=== PATIENT | male | born 1985 | race Caucasian/White ===

== ENCOUNTER 2024-08-05 14:38 | Emergency (ER) | payer OTHER, SELFPAY ==
[2024-08-05 14:49] VITALS: BP 122/81; PULSE 92; RESP 16; TEMP 36.6; O2SAT 100
--- NOTE | 2024-08-05 14:52 | ED.GENADULT ---
HPI - General Adult General Chief complaint: Ear Stated complaint: EARS CLOGGED Time Seen by Provider: 08/05/24 14:40 Source: patient Mode of arrival: ambulatory Limitations: no limitations History of Present Illness HPI narrative: Patient is a pleasant 38-year-old male presenting with complaint ears feeling clogged intermittently x2 months. Reports muffled hearing bilaterally. reports drainage from right ear yesterday. States he has been cleaning them a lot with Q-tips. Does report recent travel by airplane. Denies any concurrent URI symptoms. Denies known trauma / injury. No additional complaints. Related Data Home Medications ?Medication ?Instructions ?Recorded ?Confirmed ?Last Taken ?Type cetirizine 10 mg tablet (24Hour 10 mg PO DAILY 08/05/24 08/05/24 Unknown History Allergy) Allergies Allergy/AdvReac Type Severity Reaction Status Date / Time No Known Allergies Allergy Unverified 08/05/24 14:46 Review of Systems Review of Systems: CONSTITUTIONAL: Denies body aches, fever, chills, or sweats. EYES: Denies visual changes, redness, or discharge. ENT: Denies rhinorrhea, congestion, sore throat CARDIOVASCULAR: Denies chest pain, palpitations, or edema. RESPIRATORY: Denies cough or dyspnea. GASTROINTESTINAL: Denies abdominal pain, nausea, vomiting, or diarrhea. GENITOURINARY: Denies dysuria or hematuria. SKIN: Denies rash, itching, or wounds. MUSCULOSKELETAL: Denies back pain, joint pain, or myalgia. NEUROLOGIC: Denies headache, numbness, tingling, or weakness. PSYCH: Denies depression or anxiety. All systems reviewed & are unremarkable except as noted in HPI and below [facility] Past Medical History Medical History Lip[place] Had 3 removed 1- left chest 2 abdominal ADD (attention deficit disorder) Social History Social History Smoking status: Never smoker Tobacco type: e-cigarettes/vaping Second hand tobacco smoke exposure: No Alcohol intake: current Alcohol use details: 3-4 per week Substance use: current Substance use type: marijuana Other substance usage details: very rarely Current Housing: Decline to Answer Concerned About Future Housing: Decline to Answer Difficulty Paying Gas/Electric Bills: Decline to Answer Difficulty Paying for Meds: Decline to Answer Currently Unemployed: Decline to Answer Education: Decline to Answer Difficulty w/ Childcare or Family Care: Decline to Answer Living arrangements: with family Occupation/Education: occupation Agree to blood products: Yes Exam Narrative: GENERAL: Well-appearing, well-nourished, and in no acute distress. HEAD: Normocephalic, atraumatic. EYES: EOMI. No redness or drainage. Conjunctivae normal. ENT: Mucous membranes pink and moist. Nares clear. No rhinorrhea. Throat normal. Uvula midline. No mastoid tenderness. no lymphadenopathy NECK: Normal AROM. Supple. No lymphadenopathy. CHEST: No respiratory distress. Clear to auscultation. HEART: Regular rate MUSCULOSKELETAL: No bony tenderness. EXTREMITIES: Normal range of motion. SKIN: Warm, dry, no rash. Capillary refill normal. Normal skin turgor. NEURO: No focal deficits. Alert and oriented x3. Gait steady. PSYCH: Normal affect. No signs of depression or anxiety. HENMT: Ears: hearing grossly normal bilaterally, external ears normal, TM normal on the left, EAC's normal and TM abnormal perforated with purulent discharge on the right Course Course Emergency Course: Please be advised this is a medical document. It is intended for [id number] communication. It is written in medical language and may contain unfamiliar abbreviations or verbiage. Medical documents are intended to carry relevant information, facts as evident, and the clinical opinion of the practitioner at the time of the encounter. This dictation may have been done utilizing a voice recognition system. Attempts have been made to correct errors. However, there may be uncorrected grammatical, spelling, and recognition errors present. Level of Care: Express Care Visit Vital Signs Vital signs: Vital Signs Temperature 98 F 08/05/24 14:49 Pulse Rate 92 08/05/24 14:49 Respiratory Rate 16 08/05/24 14:49 Blood Pressure 122/81 08/05/24 14:49 Pulse Oximetry 100 08/05/24 14:49 Temperature 98 F 08/05/24 14:49 Pulse Rate 92 08/05/24 14:49 Respiratory Rate 16 08/05/24 14:49 Blood Pressure 122/81 08/05/24 14:49 Pulse Oximetry 100 08/05/24 14:49 Medical Decision Making Vital Signs Vital Signs: Vital Signs Temperature 98 F 08/05/24 14:49 Pulse Rate 92 08/05/24 14:49 Respiratory Rate 16 08/05/24 14:49 Blood Pressure 122/81 08/05/24 14:49 Pulse Oximetry 100 08/05/24 14:49 Temperature 98 F 08/05/24 14:49 Pulse Rate 92 08/05/24 14:49 Respiratory Rate 16 08/05/24 14:49 Blood Pressure 122/81 08/05/24 14:49 Pulse Oximetry 100 08/05/24 14:49 Discharge Plan Discharge Clinical Impression: Otalgia, Perforated right tympanic membrane on examination Patient Disposition: Home Condition: Stable Instructions: Antibiotic Form, Ruptured Eardrum (ED) Additional Instructions: follow-up with ENT within the next 1 week. Go straight to ER should your symptoms become worse or should any new symptoms develop Patient Language: Ukrainian Prescriptions: New amoxicillin 500 mg capsule 500 mg PO Q12H Qty: 10 0RF No Action cetirizine [24Hour Allergy] 10 mg tablet 10 mg PO DAILY triamcinolone acetonide 0.1 % cream 1 applic topical BID PRN (Reason: rash) Qty: 30 1RF dextroamphetamine-amphetamine [Adderall XR] 20 mg capsule,extended release 24hr 20 mg PO DAILY Qty: 30 0RF Follow-up/Referrals: Dante Joshi MD [Non-Staff] - 08/06/24 Jani Gordon DO [Primary Care Provider] - 08/06/24 Time of Disposition: 14:53
== END 2024-08-05 15:14 | disposition home or self-care (01) ==
PROVIDERS: Emergency Provider Registered Nurse; PCP Internal Medicine
DX: H92.03 Otalgia, bilateral (principal); H72.91 Unspecified perforation of tympanic membrane, right ear
CPT/HCPCS: 99213; G0463

== ENCOUNTER 2024-11-21 08:49 | Outpatient (CLI) | payer OTHER, SELFPAY ==
[2024-11-21 09:41] LABS: Hematocrit 40.3 % (42.0-52.0); Hemoglobin 13.3 g/dL (14.0-18.0); Immature Granulocyte Percent A 0.7 % (0-0.5); Lymphocytes Absolute Auto 1.78 K/mm3 (0.9-3.2); Mean Corpuscular HGB Conc 33.0 g/dl (32-36); Mean Corpuscular Hemoglobin 31.4 pg (26-34); Mean Corpuscular Volume 95.3 fl (80-100); Nucleated Red Blood Cells Absolute Auto 0.000 K/mm3 (0.0-0.012); Nucleated Red Blood Cells Perc 0.0 % (0.0-0.2); Platelet Count Result 292 k/mm3 (150-375); Red Blood Count 4.23 M/mm3 (4.6-6.20); White Blood Count 5.4 K/mm3 (4.5-10.0)
[2024-11-21 10:06] LABS: Alanine Aminotransferase 22 U/L (6-50); Albumin Level 4.7 g/dL (3.5-5.1); Alkaline Phosphatase 55 U/L (38-126); Anion Gap 7 mmol/L (4-12); Aspartate Amino Transferase 31 U/L (17-59); Bilirubin,Total 0.4 mg/dL (0.2-1.3); Blood Urea Nitrogen 14 mg/dL (9-20); Calcium 9.1 mg/dL (8.4-10.2); Carbon Dioxide 28 mmol/L (22-30); Chloride 103 mmol/L (98-107); Cholesterol 199 mg/dL (0-200); Estimated Glomerular Filt Rate > 60; Glucose 85 mg/dL (65-110); HDL Direct 57 mg/dL; Potassium 4.2 mmol/L (3.4-5.0); Sodium 138 mmol/L (137-145); Total Protein 7.8 g/dL (6.3-8.2); Triglycerides 175 mg/dL (<150)
[2024-11-21 10:41] LABS: Thyroid Stimulating Hormone 2.520 uIU/mL (0.465-4.680)
[2024-11-22 06:07] LABS: Triiodothyronine (T3), Free 2.8 pg/mL (2.0-4.4)
== END 2024-11-21 08:50 | disposition home or self-care (01) ==
PROVIDERS: PCP Internal Medicine; Visit Provider Internal Medicine
DX: F98.8 Other specified behavioral and emotional disorders with onset usually occurring in childhood and adolescence (principal); R53.83 Other fatigue; Z13.29 Encounter for screening for other suspected endocrine disorder; Z13.0 Encounter for screening for diseases of the blood and blood-forming organs and certain disorders involving the immune mechanism; Z13.228 Encounter for screening for other metabolic disorders
CPT/HCPCS: 36415; 80053; 80061; 82172; 84443; 84481; 85025

== ENCOUNTER 2024-11-24 08:36 | Outpatient (CLI) | payer OTHER, SELFPAY ==
--- OUTSIDE RECORDS SUMMARY | 2024-11-24 08:49 | XMS_ITS | Patient Health Record ---
Author Organization [facility] As [employer] Address [address] [place] [address] Care Team Providers Care Knit Goods Washer Name Role Phone James Avila Unavailable [phone] Reason For Referral No Information Medications Medication SIG (Take, Route, Frequency, Duration) Notes Start Date End Date Status Escitalopram Oxalate 20 MG Tablet Oral 06/30/2018 Active Wellbutrin SR 150 MG Tablet Extended Release 12 Hour Oral 06/30/2018 Act jina Social History Social History Additional Details Category Social Info Options Details Migrated Social History Migrated Social History Alcohol Intake: Occasional 12/29/2019,Tobacco Years: Former smoker 12/29/2019,Smoking Status: 2 12/29/2019 Plan Of Treatment No Information Insurance Providers Payer Name Payer Address Payer Phone Subscriber Number Group Number Insured Name Patient Relationship to Insured Coverage Start Date Coverage End Date Aetna [address] DESIRAE GARCÍA [phone] [id number] KEM CROSS Spouse - patient is the spouse of the insured
--- OUTSIDE RECORDS SUMMARY | 2024-11-24 08:49 | XMS_ITS | Clinical Summary ---
[facility] Address [address] [place] [address] Care Team Providers Care Manager Casino Name Role Phone Nevin Giraldoine [facility] Primary Care Provi raul Allergies No known active allergies Active Problems No known active problems Social History Tobacco Use Types Packs/Day Years Used Date Smoking Tobacco: Never Assessed Sex and Gender Information Value Date Recorded Sex Assigned at Not on file Legal Sex Male 11:03 AM CDT Gender Identity Not on file Sexual Orientation Not on file Last Filed Vital Signs Vital Sign Reading Time Taken Comments Blood Pressure 119/80 07/13/2023 11:27 AM CDT Pulse 88 07/13/2023 11:27 AM CDT Temperature - - Respiratory Rate 20 07/13/2023 11:27 AM CDT Oxygen Saturation 99% 07/13/2023 11:27 AM CDT Inhaled Oxygen Concentration - - Weight 72.6 kg (160 lb) 07/13/2023 11:27 AM CDT Height 170.2 cm (5' 7) 07/13/2023 11:27 AM CDT Body Mass Index 25.06 07/13/2023 11:27 AM CDT Plan of Treatment Health Maintenance Due Date Last Done Comments HEPATITIS B VACCINES (1 of 3 - 19+ 3-dose series) 09/27/2003 HPV VACCINES (1 - 3-dose SCD M series) 09/27/2011 Preventative Visit- Commercial 02/26/2024 INFLUENZA VACCINE (#1) 2024 , 02/22/2020, 11/05/2015, Additional history exists COVID-19 Vaccine ( - 2024-2 6 season) 2024 05/23/2020, 04/18/2020 DTAP/TDAP/TD VACCINES (2 - T d or Tdap) 01/29/2025 01/29/2015 Insurance AETNA AETNA Care Teams Manager Casino Relationship Specialty Start Date End Date Nevin Giraldo FNP [facility] [place] [address] PCP - General Nurse Practitioner Family 07/13/23
[2024-11-24 13:02] LABS: Hematocrit 40.5 % (42.0-52.0); Hemoglobin 13.3 g/dL (14.0-18.0); Immature Reticulocyte Fraction 6.1 % (3.0-15.9); Mean Corpuscular HGB Conc 32.8 g/dl (32-36); Mean Corpuscular Hemoglobin 31.5 pg (26-34); Mean Corpuscular Volume 96.0 fl (80-100); Platelet Count Result 264 k/mm3 (150-375); Red Blood Count 4.22 M/mm3 (4.6-6.20); Reticulocyte Hemoglobin Conten 35.3 pg (28.2-36.6); Reticulocytes Absolute 0.08 10^6/uL (0.02-0.10); White Blood Count 6.0 K/mm3 (4.5-10.0)
[2024-11-24 13:08] LABS: Iron 150 ug/dL (49-181)
[2024-11-24 13:49] LABS: Ferritin 46.50 ng/mL (17.9-464)
[2024-11-24 13:50] LABS: Percent Iron Saturation 41 % (20-50)
[2024-11-24 14:00] LABS: HIV 1/2 Ab P24 Ag Result Negative (Negative)
[2024-11-24 14:18] LABS: Vitamin B12 529.0 pg/mL (239-931)
[2024-11-25 15:09] LABS: Deamidated Gliadin Abs, IgA 2 units (0-19); Deamidated Gliadin Abs, IgG 2 units (0-19); Immunoglobulin A, Qn 179 mg/dL (90-386)
[2024-11-27 13:09] LABS: Free Testosterone (Direct) 7.4 pg/mL (6.8-21.5)
== END 2024-11-24 08:37 | disposition home or self-care (01) ==
LOC: ANHGOSHLAB 08:38
PROVIDERS: PCP Internal Medicine; Visit Provider Internal Medicine
DX: D64.9 Anemia, unspecified (principal); R53.82 Chronic fatigue, unspecified
CPT/HCPCS: 36415; 82607; 82728; 82746; 82784; 83540; 83550; 84402; 84403; 85027; 85046; 86231; 86258; 86703; G0432

== ENCOUNTER 2024-12-09 08:08 | Outpatient (CLI) | payer OTHER, SELFPAY ==
--- OUTSIDE RECORDS SUMMARY | 2024-12-09 08:17 | XMS_ITS | Clinical Summary ---
[facility] Address [address] [place] [address] Care Team Providers Care Oracle Erp Developer Name Role Phone Nevin Giraldoine [facility] Primary Care Provi raul Allergies No known [...] 01/29/2025 01/29/2015 Insurance AETNA AETNA Care Teams Oracle Erp Developer Relationship Specialty Start Date End Date Nevin Giraldo FNP [facility] [place] [address] PCP - General Nurse Practitioner Family 07/13/23
--- OUTSIDE RECORDS SUMMARY | 2024-12-09 08:17 | XMS_ITS | Patient Health Record ---
Author Organization [facility] [employer] Address [address] [facility] [address] [place] [address] Care Team Providers Care Hydraulic Technician Name Role Phone James Avila Unavailable [phone] Reason For Referral No Information Medications Medication [...] Date Coverage End Date Aet[employer] [address] DESIRAE GARCÍA [phone] [id number] KEM CROSS Spouse - patient is the spouse of the insured
[2024-12-09 13:38] LABS: Prostate Specific Antigen 0.7 ng/mL (< OR = 4.0)
[2024-12-10 08:08] LABS: LH 5.1 mIU/mL (1.7-8.6)
[2024-12-12 11:09] LABS: Free Testosterone (Direct) 12.3 pg/mL (6.8-21.5)
== END 2024-12-09 08:09 | disposition home or self-care (01) ==
LOC: ANHGOSHLAB 08:09
PROVIDERS: PCP Internal Medicine; Visit Provider Internal Medicine
DX: D64.9 Anemia, unspecified (principal); E29.1 Testicular hypofunction
CPT/HCPCS: 36415; 83002; 84146; 84153; 84402; 84403